=== PATIENT | male | born 1975 ===

== ENCOUNTER 2017-12-04 05:47 | Emergency (ER) | payer MEDICAID ==
--- NOTE | 2017-12-04 06:10 | C.PDOC ---
History Of Present Illness Patient with a Hx of cerebral palsy presents to the ER via EMS after having a witnessed seizure as per medics. As per family, patient's last seizure was 3 months ago, and is not on any antiseizure medications. Denies nausea, vomiting, or headache. Time Seen by Provider: 12/04/17 06:10 Chief Complaint (Nursing): Seizure History Per: EMS, Family History/Exam Limitations: no limitations Recent Seizure Activity Began: Just Before Arrival Number Of Seizures: One Length Of Seizures (Duration): Minutes Quality Of Seizure: Generalized Precipitating Factor(s): Other (Not known) Severity: Moderate Pain Scale Rating Of: 4 Recent travel outside of the [place]: No Past Medical History Reviewed: Historical Data, Nursing Documentation, Vital Signs Vital Signs: Last Vital Signs Temp 98.1 F 12/04/17 05:54 Pulse 122 H 12/04/17 05:54 Resp 26 H 12/04/17 05:54 BP 119/65 12/04/17 05:54 Pulse Ox 100 12/04/17 06:28 Family History: States: No Known Family Hx - Social History Hx Alcohol Use: No Hx Substance Use: No - Immunization History Hx Tetanus Toxoid Vaccination: Yes Hx Influenza Vaccination: No Hx Pneumococcal Vaccination: No Review Of Systems Constitutional: Negative for: Fever, Chills Cardiovascular: Negative for: Chest Pain Respiratory: Negative for: Shortness of Breath Gastrointestinal: Negative for: Nausea, Vomiting Neurological: Positive for: Seizures. Negative for: Headache Physical Exam - Physical Exam Appears: Non-toxic, Other (Awake, alert, does not appear post ictal now) Skin: Warm, Dry Head: Normacephalic Oral Mucosa: Moist Chest: Symmetrical, No Tenderness Cardiovascular: Rhythm Regular Respiratory: No Rales, No Rhonchi, No Wheezing Gastrointestinal/Abdominal: Soft, No Tenderness Extremity: Other (Legs contracted with spastic movements) Neurological/Psych: Oriented x3 ED Course And Treatment - Laboratory Results Result Diagrams: 12/04/17 06:25 O2 Sat by Pulse Oximetry: 100 (Room air) Pulse Ox Interpretation: Normal Progress Note: CT head, blood work, and urinalysis ordered. Disposition Counseled Patient/Family Regarding: Studies Performed, Diagnosis - Disposition Disposition Time: 06:10 Condition: FAIR Forms: [facility] (Spanish) - Clinical Impression Clinical Impression: Seizure - Scribe Statement The provider has reviewed the documentation as recorded by the Scribsudheer Perez All medical record entries made by the Montyibsudheer were at my direction and personally dictated by me. I have reviewed the chart and agree that the record accurately reflects my personal performance of the history, physical exam, medical decision making, and the department course for this patient. I have also personally directed, reviewed, and agree with the discharge instructions and disposition. Physician Patient Turnover Patient Signed Over To: Martha Akhtar Handoff Comments: Pending labs and dispo.
[2017-12-04 06:29] LABS: BASO # 0.1 K/uL (0.0-0.2); EOS # 0.4 K/uL (0.0-0.7); EOS % 3.7 % (0.0-4.0); HEMOGLOBIN 16.2 g/dL (12.0-18.0); LYMPH # 2.7 K/uL (1.0-4.3); LYMPH % 25.6 % (20.0-40.0); MEAN CELL VOLUME 89.6 fL (80.0-94.0); MEAN CORPUSCULAR HEMOGLOBIN 30.6 pg (27.0-31.0); MEAN CORPUSCULAR HGB CONC 34.2 g/dL (33.0-37.0); MEAN PLATELET VOLUME 10.9 fL (7.2-11.7); MONO # 0.7 K/uL (0.0-0.8); MONO % 6.6 % (0.0-10.0); NEUT # 6.7 K/uL (1.8-7.0); NEUT % 63.1 % (50.0-75.0); NRBC % 0.1 % (0.0-2.0); RBC 5.29 Mil/uL (4.40-5.90); WHITE BLOOD COUNT 10.6 K/uL (4.8-10.8)
[2017-12-04 06:53] LABS: ALB/GLOB RATIO 1.3 (1.0-2.1); ALBUMIN 4.4 g/dL (3.5-5.0); ALT/SGPT 24 U/L (21-72); AST/SGOT 31 U/L (17-59); BLOOD UREA NITROGEN 6 mg/dL (9-20); CALCIUM 8.7 mg/dl (8.6-10.4); GFR AFRICAN-AMERICAN > 60; GFR NON-AFRICAN AMERICAN > 60
[2017-12-04] MEDS ORDERED: DiphenhydrAMINE 50 mg/ml Inj IVP STA (07:55)
[2017-12-04] MEDS ORDERED: Sodium Chloride 0.9% 1,000 ML IV ONE (07:59)
[2017-12-04] MEDS ORDERED: Sodium Chloride 0.9% 1,000 ML ONE (08:02)
[2017-12-04] MEDS ORDERED: DiphenhydrAMINE 50 mg/ml Inj ONE (08:02)
--- NOTE | 2017-12-04 09:13 | CT ---
PROCEDURE: CT HEAD WITHOUT CONTRAST. HISTORY: Seizure COMPARISON: None available. TECHNIQUE: Axial computed tomography images were obtained through the head/brain without intravenous contrast. Radiation dose: Total exam DLP = 947.38 mGy-cm. This CT exam was performed using one or more of the following dose reduction techniques: Automated exposure control, adjustment of the mA and/or kV according to patient size, and/or use of iterative reconstruction technique. FINDINGS: HEMORRHAGE: No parenchymal, subarachnoid nor extra-axial hemorrhage. BRAIN: There is a rounded -elliptical shaped ring-like calcification (measuring approximately 6.9 cm trans x 6.0 cm ap) in the right superior frontal subcortical/deep white matter which nonspecific. This could represent sequela of neurocysticercosis, given the patient's history of seizure however other etiologies not excluded. . This focus does not exhibit any significant surrounding edema or exerts significant surrounding mass-effect. No other abnormal calcifications are identified. . Clinic correlation recommended VENTRICLES: No obstructive hydrocephalus. CALVARIUM: Calvarium appears intact PARANASAL SINUSES: There is mild mucosal thickening both maxillary antra left greater than right. There is also moderate mucosal thickening in the ethmoid air complex extending superiorly into the frontal sinus more so on the right side than the left. Mild mucosal thickening left chamber sphenoid sinus. MASTOID AIR CELLS: The mastoid air complexes are underpneumatized and sclerotic suggesting chronic sequela of otitis media/mastoiditis. There is also soft tissue seen right middle ear canal likely representing granulation tissue/ scar. . No evidence of destructive changes of the right drum spur or right ossicular chain. OTHER FINDINGS: None. IMPRESSION: There is a small ring-like calcifications seen in the right superior frontal subcortical white matter of uncertain etiology however given the patient's history of seizures, consider neurocysticercosis however other etiologies not excluded. . There is no significant surrounding edema about lesion and no significant mass effect. No evidence of acute intracranial hemorrhage.
[2017-12-04] MEDS ORDERED: Valproate 1,000 MG in Sodium Chloride 0.9% 100 ML IVPB ONE (10:11)
[2017-12-04] MEDS ORDERED: DiphenhydrAMINE 50 mg/ml Inj IVP PRN (10:38)
[2017-12-04 11:05] LABS: SQUAMOUS EPITHIAL < 1 /hpf (0-5); URINE BACTERIA RARE (<OCC); URINE BILIRUBIN NEGATIVE (NEGATIVE); URINE BLOOD NEGATIVE (NEGATIVE); URINE CLARITY Hazy (Clear); URINE COLOR Yellow (YELLOW); URINE GLUCOSE (UA) NORMAL (Normal); URINE HYALINE CAST 0-2 /lpf (0-2); URINE LEUKOCYTE ESTERASE NEG Leu/uL (Negative); URINE PROTEIN 1+ mg/dL (NEGATIVE); URINE UROBILINOGEN NORMAL mg/dL (0.2-1.0)
--- NOTE | 2017-12-04 12:57 | MRI ---
PROCEDURE: MRI BRAIN WITHOUT CONTRAST HISTORY: right side lesion, r/o neurocystercercosis COMPARISON: Noncontrast head CT from 12/04/2017 TECHNIQUE: Multiplanar, multisequence MR images of the brain were obtained without intravenous contrast enhancement. FINDINGS: This is a nondiagnostic examination due to severe patient motion. OTHER FINDINGS: None. IMPRESSION: Nondiagnostic examination due to severe patient motion.
[2017-12-04 14:18] VITALS: BP 100/64; PULSE 69; RESP 16; TEMP 98.5; O2SAT 99
== END 2017-12-04 15:00 | disposition home or self-care (01) ==
LOC: C.ER 05:47
DX: R56.9 Unspecified convulsions (principal); G80.9 Cerebral palsy, unspecified
CPT/HCPCS: 70450; 70551; 80053; 81001; 82948; 85025; 96361; 96365; 96375; 99285; J1200; J2060; J2405; J7040

== ENCOUNTER 2018-05-31 01:47 | Emergency (ER) | payer MEDICAID ==
--- NOTE | 2018-05-31 02:00 | C.PDOC ---
History Of Present Illness pt has had a seizure, ran out of his medications. Does not appeares to be post ictal at this time. He has polio Time Seen by Provider: 05/31/18 01:59 Chief Complaint (Nursing): Seizure Past Medical History Reviewed: Historical Data, Nursing Documentation, Vital Signs Vital Signs: Last Vital Signs Temp 98.2 F 05/31/18 01:59 Pulse 99 H 05/31/18 03:00 Resp 18 05/31/18 03:00 BP 109/83 05/31/18 03:00 Pulse Ox 97 05/31/18 03:00 Family History: States: No Known Family Hx - Social History Hx Alcohol Use: No Hx Substance Use: No - Immunization History Hx Tetanus Toxoid Vaccination: Yes Hx Influenza Vaccination: No Hx Pneumococcal Vaccination: No Review Of Systems Constitutional: Negative for: Fever ENT: Negative for: Throat Pain Cardiovascular: Negative for: Chest Pain Respiratory: Negative for: Shortness of Breath Gastrointestinal: Negative for: Abdominal Pain Musculoskeletal: Negative for: Back Pain Skin: Negative for: Rash Neurological: Positive for: Seizures Physical Exam - Physical Exam Appears: Non-toxic, No Acute Distress Skin: Warm, Dry Head: Normacephalic Eye(s): bilateral: Normal Inspection Oral Mucosa: Moist Neck: Supple Chest: Symmetrical Cardiovascular: Rhythm Regular Respiratory: No Rales, No Rhonchi, No Wheezing Gastrointestinal/Abdominal: Soft, No Tenderness, No Distention Back: Normal Inspection Extremity: Other (contracted, chronic) Extremity: Bilateral: Atraumatic Neurological/Psych: Oriented x3 Gait: Unable To Assess ED Course And Treatment - Laboratory Results Result Diagrams: 05/31/18 02:18 05/31/18 02:18 O2 Sat by Pulse Oximetry: 97 Pulse Ox Interpretation: Normal Reevaluation Time: 03:33 Reassessment Condition: Improved Disposition Counseled Patient/Family Regarding: Studies Performed, Diagnosis, Need For Followup, Rx Given - Disposition Referrals: [facility] [Outside] [facility] [Outside] Darren Nicholson MD [Staff Provider] - Disposition: HOME/ ROUTINE Disposition Time: 01:59 Condition: FAIR Additional Instructions: Please have medication level rechecked in 3-5 days Prescriptions: Divalproex [Depakote DR (*BID*)] 500 mg PO BID #[id number] ect Instructions: Seizures, Adult (DC) Forms: [facility] (Serbian) - Clinical Impression Clinical Impression: Seizure
[2018-05-31 02:02] VITALS: BMI 25.6
[2018-05-31] MEDS ORDERED: Sodium Chloride 0.9% 1,000 ML IV ONE (02:02)
[2018-05-31 02:21] LABS: BASO # 0.1 K/uL (0.0-0.2); BASO % 1.3 % (0.0-2.0); EOS # 0.3 K/uL (0.0-0.7); EOS % 3.8 % (0.0-4.0); HEMOGLOBIN 15.2 g/dL (12.0-18.0); LYMPH # 2.3 K/uL (1.0-4.3); LYMPH % 26.8 % (20.0-40.0); MEAN CORPUSCULAR HEMOGLOBIN 31.8 pg (27.0-31.0); MEAN CORPUSCULAR HGB CONC 34.9 g/dL (33.0-37.0); MEAN PLATELET VOLUME 10.5 fL (7.2-11.7); MONO # 0.5 K/uL (0.0-0.8); MONO % 6.2 % (0.0-10.0); NEUT # 5.2 K/uL (1.8-7.0); NEUT % 61.9 % (50.0-75.0); RBC 4.8 Mil/uL (4.40-5.90); RED CELL DISTRIBUTION WIDTH 12.8 % (11.5-14.5); WHITE BLOOD COUNT 8.5 K/uL (4.8-10.8)
[2018-05-31 02:47] LABS: ALB/GLOB RATIO 1.4 (1.0-2.1); ALBUMIN 4.4 g/dL (3.5-5.0); ALT/SGPT 29 U/L (21-72); AST/SGOT 46 U/L (17-59); BLOOD UREA NITROGEN 10 mg/dL (9-20); CALCIUM 9.5 mg/dl (8.6-10.4); GFR NON-AFRICAN AMERICAN > 60
[2018-05-31 02:49] LABS: CARBAMAZEPINE < 3.0 ug/mL (4.0-12.0)
[2018-05-31 02:51] LABS: VALPROIC ACID < 10.0 ug/mL (50.0-100.0)
[2018-05-31] MEDS ORDERED: Divalproex 500 mg DR Tab PO ONE (06:17)
[2018-05-31 06:27] VITALS: BP 115/68; PULSE 89; RESP 18; TEMP 97.9; O2SAT 100
== END 2018-05-31 07:46 | disposition home or self-care (01) ==
LOC: SUPCPDRO 01:47 → C.ER 01:47
DX: R56.9 Unspecified convulsions (principal)
CPT/HCPCS: 80053; 80156; 80164; 85025; 96360; 99285; J7030